=== PATIENT | female | born 1930 | race Caucasian/White ===

== ENCOUNTER 2021-06-17 21:35 | Inpatient (IN) ==
[2021-06-18] MEDS ORDERED: Acetaminophen 325 MG TABLET PO PRN (03:53)
[2021-06-18] MEDS ORDERED: Ondansetron 4 MG/2 ML VIAL IVP PRN (03:53)
[2021-06-18] MEDS ORDERED: Naloxone 0.4 MG/ML INJ IVP PRN (03:53)
[2021-06-18 05:40] LABS: BUN/Creatinine Ratio 11 (6-26); Blood Urea Nitrogen 10 mg/dL (8-23); Calcium 8.6 mg/dL (8.6-10.3); Carbon Dioxide 27 mEq/L (23-29); Chloride 98 mEq/L (98-107); Glucose 83 mg/dL (70-105); Magnesium 1.6 mg/dL (1.6-2.6); Osmolality,Calculated 270 (280-300); Phosphorous 3.5 mg/dL (2.7-4.5); Potassium 3.8 mEq/L (3.5-5.1); Sodium 131 mEq/L (136-145); eGFR For African Americans > 60 (> 60); eGFR For Non-African Americans > 60 (> 60)
[2021-06-18] MEDS ORDERED: *HR* Labetalol 20 MG/4 ML SYRINGE IVP ONE (05:49)
[2021-06-18] MEDS ORDERED: Ipratropium 1 PUFF INHALER IH PRN (05:54)
[2021-06-18] MEDS ORDERED: Isovue-370 500 ML BOTTLE IVP ONE (05:56)
[2021-06-18] MEDS ORDERED: Vancomycin 1 EACH in 0.9 % Sodium Chloride 250 ML IVPB PRN (06:00)
[2021-06-18] MEDS: *HR* Heparin 5,000 UNIT/ML VIAL SQ SCH ×2 (08:16→16:56)
[2021-06-18] MEDS ORDERED: Albuterol 2.5 MG/3 ML NEBULIZER IH SCH (10:00)
[2021-06-18] MEDS ORDERED: Piperacillin/Tazobactam 3.375 GM in 0.9 % Sodium Chloride Mini Bag 100 ML IVPB SCH (12:00)
[2021-06-18] MEDS ORDERED: Perflutren Lipid Microsphere 1.3 ML in 0.9 % Sodium Chloride 8.7 ML IVP PRN (14:07)
[2021-06-18] MEDS: Metoprolol XL (24 HR) Succ 50 MG TAB.ER.24H PO SCH (16:57)
[2021-06-18] MEDS: Furosemide 20 MG/2 ML VIAL IVP SCH (16:57)
[2021-06-18] MEDS: Aspirin Enteric Coated 81 MG Tablet PO SCH (21:22)
[2021-06-18] MEDS: Gabapentin 300 MG CAPSULE PO SCH (21:22)
[2021-06-19 01:41] LABS: Hematocrit 23.3 % (35.3-44.9); Hemoglobin 7.4 g/dL (11.5-15.4); Mean Corpuscular HGB Conc 31.8 g/dL (31.6-35.5); Mean Corpuscular Hemoglobin 29.4 pg (28.0-33.3); Mean Corpuscular Volume 92.5 fL (83.0-100.0); Platelet Count 245 K/mcL (140-400); Red Blood Count 2.52 M/mcL (3.82-4.97); Red Cell Distribution Width 16.2 % (11.5-14.5); White Blood Count 7.2 K/mcL (4.3-11.1)
[2021-06-19 01:59] LABS: Calcium 8.1 mg/dL (8.6-10.3); Magnesium 1.5 mg/dL (1.6-2.6); Phosphorous 3.8 mg/dL (2.7-4.5)
[2021-06-19] MEDS: *HR* Enoxaparin 30 MG/0.3 ML SYRINGE SQ SCH (05:16)
[2021-06-19] MEDS ORDERED: *HR* Enoxaparin 40 MG/0.4 ML SYRINGE SQ SCH (06:00)
[2021-06-19] MEDS: Furosemide 20 MG/2 ML VIAL IVP SCH ×2 (10:21→10:24)
[2021-06-19] MEDS: Metoprolol XL (24 HR) Succ 50 MG TAB.ER.24H PO SCH (10:21)
[2021-06-19] MEDS: Gabapentin 300 MG CAPSULE PO SCH (21:35)
[2021-06-19] MEDS: Aspirin Enteric Coated 81 MG Tablet PO SCH (21:35)
[2021-06-20 03:06] LABS: Hematocrit 23.7 % (35.3-44.9); Hemoglobin 7.3 g/dL (11.5-15.4); Mean Corpuscular HGB Conc 30.8 g/dL (31.6-35.5); Mean Corpuscular Hemoglobin 28.6 pg (28.0-33.3); Mean Corpuscular Volume 92.9 fL (83.0-100.0); Mean Platelet Volume 9.6 fL (9.4-12.4); Platelet Count 244 K/mcL (140-400); Red Blood Count 2.55 M/mcL (3.82-4.97); Red Cell Distribution Width 16.2 % (11.5-14.5); White Blood Count 8.3 K/mcL (4.3-11.1)
[2021-06-20 03:27] LABS: Calcium 8.3 mg/dL (8.6-10.3); Phosphorous 3.5 mg/dL (2.7-4.5); Potassium 4.3 mEq/L (3.5-5.1)
[2021-06-20] MEDS: *HR* Enoxaparin 30 MG/0.3 ML SYRINGE SQ SCH (06:22)
[2021-06-20] MEDS: Metoprolol XL (24 HR) Succ 50 MG TAB.ER.24H PO SCH (09:42)
[2021-06-20] MEDS: Gabapentin 300 MG CAPSULE PO SCH (22:56)
[2021-06-20] MEDS: Aspirin Enteric Coated 81 MG Tablet PO SCH (22:56)
[2021-06-21 02:55] LABS: Basophils % 0.5 %; Eosinophils # 0.4 K/mcL (0.0-0.6); Eosinophils % 4.8 %; Hematocrit 21.8 % (35.3-44.9); Hemoglobin 6.9 g/dL (11.5-15.4); Immature Granulocytes % 0.4 % (0-4); Lymphocytes # 2.4 K/mcL (0.6-4.6); Lymphocytes % 31.6 %; Mean Corpuscular HGB Conc 31.7 g/dL (31.6-35.5); Mean Corpuscular Volume 91.6 fL (83.0-100.0); Mean Platelet Volume 9.5 fL (9.4-12.4); Monocytes % 13.1 %; Neutrophils # 3.7 K/mcL (1.6-8.9); Platelet Count 236 K/mcL (140-400); Red Blood Count 2.38 M/mcL (3.82-4.97); Red Cell Distribution Width 16.1 % (11.5-14.5); Segmented Neutrophils % 49.6 %; White Blood Count 7.5 K/mcL (4.3-11.1)
[2021-06-21 03:13] LABS: BUN/Creatinine Ratio 20 (6-26); Blood Urea Nitrogen 21 mg/dL (8-23); Calcium 8.4 mg/dL (8.6-10.3); Carbon Dioxide 28 mEq/L (23-29); Chloride 102 mEq/L (98-107); Glucose 92 mg/dL (70-105); Osmolality,Calculated 281 (280-300); Potassium 4.7 mEq/L (3.5-5.1); Sodium 134 mEq/L (136-145); eGFR For African Americans > 60 (> 60); eGFR For Non-African Americans 51 (> 60)
[2021-06-21] MEDS: *HR* Enoxaparin 30 MG/0.3 ML SYRINGE SQ SCH (06:33)
[2021-06-21] MEDS: Metoprolol XL (24 HR) Succ 50 MG TAB.ER.24H PO SCH (06:43)
[2021-06-21] MEDS ORDERED: Furosemide 20 MG/2 ML VIAL IVP ONE (09:09)
[2021-06-21 11:46] LABS: Vitamin B12 > 1500 pg/mL (250-1100)
[2021-06-21 11:47] LABS: Ferritin 16 ng/mL (10-120); Iron < 10 mcg/dL (50-170); Thyroid Stimulating Hormone 1.136 mcIU/mL (0.340-5.600)
[2021-06-21] MEDS ORDERED: Iron Sucrose Complex 400 MG in 0.9 % Sodium Chloride 250 ML IVPB ONE (12:43)
[2021-06-21] MEDS ORDERED: 0.9 % Sodium Chloride 250 ML ONE (13:51)
[2021-06-21 19:18] LABS: Hematocrit 34.4 % (35.3-44.9)
[2021-06-21] MEDS: Gabapentin 300 MG CAPSULE PO SCH (22:14)
[2021-06-21] MEDS: Aspirin Enteric Coated 81 MG Tablet PO SCH (22:14)
[2021-06-22] MEDS: Metoprolol XL (24 HR) Succ 50 MG TAB.ER.24H PO SCH (09:10)
[2021-06-22] MEDS: *HR* Enoxaparin 30 MG/0.3 ML SYRINGE SQ SCH (09:12)
[2021-06-22 10:04] LABS: BUN/Creatinine Ratio 23 (6-26); Blood Urea Nitrogen 24 mg/dL (8-23); Calcium 8.7 mg/dL (8.6-10.3); Carbon Dioxide 30 mEq/L (23-29); Chloride 101 mEq/L (98-107); Glucose 95 mg/dL (70-105); Osmolality,Calculated 286 (280-300); Potassium 4.8 mEq/L (3.5-5.1); Sodium 136 mEq/L (136-145); eGFR For African Americans > 60 (> 60); eGFR For Non-African Americans 50 (> 60)
[2021-06-22 11:30] VITALS: BP 116/65; PULSE 94; TEMP 98.1; O2SAT 91
[2021-06-24 10:19] LABS: Transferrin 234 mg/dL (200-400)
== END 2021-06-22 17:55 | DRG 291 ==
LOC: 3NENU → SUATTDRO 06-18 02:53
PROVIDERS: ADMIT Internal Medicine; ATTEND Family Medicine